=== PATIENT | female | born 1935 | race Caucasian/White ===

== ENCOUNTER 2017-12-04 15:29 | Inpatient (IN) | payer MEDICARE, BC ==
[~2017-12-04] VITALS: Ht 152.4 cm; Wt 73.0 kg
[~2017-12-04 15:29] MED LIST: ACTONEL PO; ACTONEL35 MG OR; BACTRIM DS1 TAB PO; BACTRIM1 TAB OR; CALCIUM + D PO; CALCIUM + D600 MG PO; EQ IBUPROFEN200 MG PO; FLUARIX QUADRIV1 IN1 IM; FLUARIX QUADRIV1 INJ IM; FLUZONE SPLT1 M1 IM; LYRICA75 MG PO; NAPROSYN500 MG OR; NEXIUM40 M1 PO; SYNTHROID112 MCG PO; TYLENOL325 MG OR; VIT C PO; VITAMIN C500 MG PO; ZINC50 M1 PO; ZOCOR20 M1 PO; ZOCOR20 MG OR; ZOCOR20 MG PO
[2017-12-04 15:50] VITALS: BP 113/82
[2017-12-04 16:22] LABS: HEMATOCRIT 39.8 % (37.0-47.0); HEMOGLOBIN 12.5 g/dl (12.0-16.0); IMMATURE GRANULOCYTES 0.7 % (0.0-5.0); MEAN CORPUSCULAR HGB 29.2 pG CALC (26.0-32.0); MEAN CORPUSCULAR HGB CONC 31.4 g/L CALC (32.0-36.0); NEUT# 2.46 thou/uL (2.00-7.15); RED BLOOD COUNT 4.28 mill/uL (4.20-5.60); RED CELL DISTRI WIDTH 17.2 % (11.5-15.5)
[2017-12-04 16:26] LABS: URINE BILIRUBIN - DIPSTICK NEGATIVE (NEGATIVE); URINE BLOOD DIPSTICK NEGATIVE (NEGATIVE); URINE CLARITY CLEAR; URINE COLOR YELLOW; URINE GLUCOSE - DIPSTICK NEGATIVE (NEGATIVE); URINE KETONE NEGATIVE (NEGATIVE); URINE LEUK ESTERASE NEGATIVE (NEGATIVE); URINE NITRITE - DIPSTICK NEGATIVE (Negative); URINE PROTEIN - DIPSTICK NEGATIVE (NEG-TRACE); URINE SPECIFIC GRAVITY 1.015
[2017-12-04 16:37] LABS: BUN 11 mg/dL (8-23); BUN/CREATININE RATIO 20 (12-20 (CALC)); CARBON DIOXIDE 37 mmol/l (22-30); CHLORIDE 92 mmol/l (95-108); CREATININE 0.5 mg/dL (0.5-1.0); GFR > 60 ML/MIN (>=60 (CALC)); GFR FOR AFR.AMER. > 60 ML/MIN (>=60 (CALC)); SODIUM 138 mmol/l (137-146)
[2017-12-04 16:48] LABS: ANION GAP 12 (6-22 (CALC)); POTASSIUM 2.5 mmol/l (3.5-5.1)
[2017-12-04 17:08] LABS: TSH, 3RD GENERATION 3.13 uIU/mL (0.47 - 4.68)
[2017-12-04 17:49] LABS: MAGNESIUM 2.1 mg/dL (1.6-2.3)
[2017-12-04 19:00] VITALS: BP 121/88
[2017-12-04 22:30] VITALS: BP 94/68
[2017-12-04 23:50] VITALS: BP 82/69
[2017-12-05] VITALS (23 sets, daily range): BP systolic 79–132; BP diastolic 61–83
[2017-12-05 06:16] LABS: ALBUMIN 3.1 g/dL (3.2-5.0); ALKALINE PHOSPHATASE 62 u/l (38-126); BILIRUBIN, TOTAL 1.8 mg/dL (0.0-1.4); BUN 13 mg/dL (8-23); BUN/CREATININE RATIO 21 (12-20 (CALC)); CARBON DIOXIDE 36 mmol/l (22-30); CHLORIDE 93 mmol/l (95-108); CREATININE 0.6 mg/dL (0.5-1.0); GFR > 60 ML/MIN (>=60 (CALC)); GFR FOR AFR.AMER. > 60 ML/MIN (>=60 (CALC)); SGPT/ALT 24 u/l (11-66); SODIUM 136 mmol/l (137-146); TOTAL PROTEIN 6.4 g/dL (6.3-8.2)
[2017-12-05 06:29] LABS: ANION GAP 11 (6-22 (CALC)); POTASSIUM 3.9 mmol/l (3.5-5.1); SGOT/AST 49 u/l (9-36)
[2017-12-05] MEDS ORDERED: TYLENOL325 MG PO (10:29)
[2017-12-05] MEDS ORDERED: SYSTANE OU (10:31)
== END 2017-12-05 16:45 | disposition short-term general hospital (02) | DRG 306 ==
LOC: MS2 15:29 → ICU 12-05 11:10
PROVIDERS: Nurse Practitioner Family; ADMIT Internal Medicine; ATTEND Internal Medicine
PROC: 0T9B70Z Drainage of Bladder with Drainage Device, Via Natural or Artificial Opening (ICD-10-PCS; principal; 2017-12-05)
DX: I34.0 Nonrheumatic mitral (valve) insufficiency (principal); I50.21 Acute systolic (congestive) heart failure; B02.29 Other postherpetic nervous system involvement; I48.91 Unspecified atrial fibrillation; E78.5 Hyperlipidemia, unspecified; E03.9 Hypothyroidism, unspecified; M19.90 Unspecified osteoarthritis, unspecified site; K21.9 Gastro-esophageal reflux disease without esophagitis; E87.6 Hypokalemia; I27.20 Pulmonary hypertension, unspecified; Z85.3 Personal history of malignant neoplasm of breast; Z85.07 Personal history of malignant neoplasm of pancreas; Z79.01 Long term (current) use of anticoagulants
CPT/HCPCS: J1160; J1650

== ENCOUNTER → 2018-02-20 | Outpatient (REF) | payer MEDICARE, BC ==
[~2018-02-20] MED LIST changes: +SYSTANE OU; +TYLENOL325 MG PO
[2018-02-20 16:07] LABS: ALKALINE PHOSPHATASE 52 u/l (38-126); ANION GAP 13 (6-22 (CALC)); BILIRUBIN, TOTAL 0.6 mg/dL (0.0-1.4); BUN 24 mg/dL (8-23); BUN/CREATININE RATIO 39 (12-20 (CALC)); CARBON DIOXIDE 31 mmol/l (22-30); CHLORIDE 101 mmol/l (95-108); CREATININE 0.6 mg/dL (0.5-1.0); GFR > 60 ML/MIN (>=60 (CALC)); GFR FOR AFR.AMER. > 60 ML/MIN (>=60 (CALC)); SGOT/AST 37 u/l (9-36); SODIUM 140 mmol/l (137-146); TOTAL PROTEIN 7.7 g/dL (6.3-8.2)
[2018-02-20 16:17] LABS: POTASSIUM 4.5 mmol/l (3.5-5.1)
== END | disposition home or self-care (01) ==
LOC: LAB 15:23
PROVIDERS: ATTEND Nurse Practitioner Family
DX: I50.22 Chronic systolic (congestive) heart failure (principal); Z95.2 Presence of prosthetic heart valve